=== PATIENT | female | born 1985 | race Caucasian/White ===

== ENCOUNTER 2018-02-11 16:30 | Emergency (ER) | payer MEDICAID ==
[~2018-02-11] VITALS: Ht 167.6 cm; Wt 75.3 kg
[2018-02-11 16:36] VITALS: BP 133/99; Ht 167.6 cm; Wt 75.3 kg
== END 2018-02-11 18:01 | disposition home or self-care (01) ==
LOC: ED 16:30
DX: S93.401A Sprain of unspecified ligament of right ankle, initial encounter (principal); R03.0 Elevated blood-pressure reading, without diagnosis of hypertension; X50.9XXA Other and unspecified overexertion or strenuous movements or postures, initial encounter; Y93.89 Activity, other specified; Y99.8 Other external cause status; Y92.89 Other specified places as the place of occurrence of the external cause

== ENCOUNTER 2018-08-30 16:11 | Emergency (ER) | payer MEDICAID ==
[2018-08-30 16:36] VITALS: Ht 160 cm
[2018-08-30 19:24] VITALS: BP 119/59
== END 2018-08-30 19:24 | disposition home or self-care (01) ==
LOC: ED 16:11
DX: M25.571 Pain in right ankle and joints of right foot (principal)